=== PATIENT | female | born 1995 | race Caucasian/White ===

== ENCOUNTER 2017-02-27 22:01 | Emergency (ER) | payer OTHER ==
[~2017-02-27] VITALS: Ht 162.6 cm; Wt 48.5 kg
[2017-02-27 22:06] VITALS: BP_SYST 117
--- NOTE | 2017-02-27 22:06 | NUR ---
Patient triaged and placed in waiting room. VSS and patient appears in no acute distress at this time. Accompanied by mother, awaiting available bed, and MD notified of need for MSE.
--- NOTE | 2017-02-27 22:06 | NUR ---
Patient AAOx3, ambulatory. Patient states having pain to left ankle since earlier this evening after "falling down 3 steps of stairs". Patient states she "caught her fall with the handrail" and denies injury to any other area. Patient states left ankle pain is pain scale 8/10 at this time with a sharp sensation. Patient states sensation is present below ankle injury, is able to slightly rotate left ankle but pain increases when doing so. Patient denies any other complaints.
--- NOTE | 2017-02-27 22:40 | NUR ---
Mirta de la rosa in [facility] - 02/27/17 at 2356 by SDEDEJ WEST Lindsay at bedside examining patient.
--- NOTE | 2017-02-27 22:40 | NUR ---
ER Dr. Lindsay examining patient.
--- NOTE | 2017-02-27 22:59 | NUR ---
Patient to ER bed 2 to gown for evaluation. Side rails up. Report given to MAGALIE COKER.
--- NOTE | 2017-02-27 23:29 | NUR ---
TARA wrap placed to left ankle per MD verbal order. Pulses present prior to and after wrap placement. Patient tolerated treatment well.
[2017-02-27 23:47] VITALS: BP_SYST 119
--- NOTE | 2017-02-27 23:47 | NUR ---
Patient given written and verbal discharge instructions and verbalizes understanding. ER MD discussed with patient the results and treatment provided. Patient in stable condition. ID arm band removed. Patient educated on pain management and to follow up with PMD. Pain Scale 0/10. Opportunity for questions provided and answered.
== END 2017-02-27 23:47 | disposition home or self-care (01) ==
LOC: SED 22:01
DX: S93.402A Sprain of unspecified ligament of left ankle, initial encounter (principal); W01.0XXA Fall on same level from slipping, tripping and stumbling without subsequent striking against object, initial encounter; Y93.89 Activity, other specified; Y92.89 Other specified places as the place of occurrence of the external cause; Y99.8 Other external cause status
CPT/HCPCS: 99284

== ENCOUNTER 2017-03-02 14:45 | Emergency (ER) | payer OTHER ==
[~2017-03-02] VITALS: Ht 162.6 cm; Wt 47.6 kg
[2017-03-02 14:45] VITALS: BP_SYST 146
[2017-03-02] MEDS ORDERED: KETOROLAC TROMETHAMINE 60 MG/2 ML VIAL IM ONE (15:30)
[2017-03-02 16:00] VITALS: BP_SYST 108
== END 2017-03-02 16:00 | disposition home or self-care (01) ==
LOC: SED 14:45
DX: S93.492A Sprain of other ligament of left ankle, initial encounter (principal); R03.0 Elevated blood-pressure reading, without diagnosis of hypertension; X58.XXXA Exposure to other specified factors, initial encounter; Y93.01 Activity, walking, marching and hiking; Y92.89 Other specified places as the place of occurrence of the external cause; Y99.8 Other external cause status
CPT/HCPCS: 73610; 81025; 96372; 99284; J1885

== ENCOUNTER 2017-04-07 12:29 | Emergency (ER) | payer OTHER ==
[~2017-04-07] VITALS: Ht 162.6 cm; Wt 47.2 kg
[2017-04-07 12:35] VITALS: BP_SYST 132
[2017-04-07 15:53] VITALS: BP_SYST 127
== END 2017-04-07 15:53 | disposition home or self-care (01) ==
LOC: SED 12:29
DX: S16.1XXA Strain of muscle, fascia and tendon at neck level, initial encounter (principal); V49.49XA Driver injured in collision with other motor vehicles in traffic accident, initial encounter; Y93.89 Activity, other specified; Y92.89 Other specified places as the place of occurrence of the external cause; Y99.8 Other external cause status
CPT/HCPCS: 81025; 99283